=== PATIENT | male | born 1995 | race Caucasian/White ===

== ENCOUNTER 2024-04-08 13:02 | Emergency (ER) | payer SELFPAY ==
[2024-04-08 13:04] VITALS: BP 134/93
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
[2024-04-08] MEDS: ADACEL 0.5 ML IM (15:38)
[2024-04-08 15:59] VITALS: BP 131/96
== END 2024-04-08 16:00 | disposition home or self-care (01) ==
LOC: EMR 13:02
PROVIDERS: EMERGENCY PHYSICIAN Emergency Medicine
DX: S01.01XA Laceration without foreign body of scalp, initial encounter (principal); S61.412A Laceration without foreign body of left hand, initial encounter; V95.9XXA Unspecified aircraft accident injuring occupant, initial encounter; S60.455A Superficial foreign body of left ring finger, initial encounter; W49.04XA Ring or other jewelry causing external constriction, initial encounter; Z23 Encounter for immunization
CPT/HCPCS: 12002; 90471; 99284; 70450; 73130; 90715

== ENCOUNTER 2024-04-22 06:43 | Day surgery (SDC) | payer OTHER, SELFPAY ==
[2024-04-22 10:50] VITALS: BMI 28.0
[2024-04-22 10:55] VITALS: BP 129/90
[2024-04-22 11:14] VITALS: BMI 28.0
[2024-04-22 15:15] VITALS: BP 112/65; BP 129/90
[2024-04-22 15:30] VITALS: BP 138/71
[2024-04-22 15:35] VITALS: BP 122/91
[2024-04-22 16:05] VITALS: BP 126/86
[2024-04-22 16:25] VITALS: BP 129/84
== END 2024-04-22 16:54 | disposition home or self-care (01) ==
LOC: SDS 06:43
PROVIDERS: ATTENDING PHYSICIAN Orthopaedic Surgery Hand Surgery
DX: S66.327A Laceration of extensor muscle, fascia and tendon of left little finger at wrist and hand level, initial encounter (principal); V95.9XXA Unspecified aircraft accident injuring occupant, initial encounter; Y93.89 Activity, other specified
CPT/HCPCS: 26418

== ENCOUNTER 2024-06-23 13:45 | Emergency (ER) | payer OTHER, SELFPAY ==
[2024-06-23 13:49] VITALS: BP 131/103
--- NOTE | 2024-06-23 13:55 | ED.GENMED ---
History of Present Illness
General
Chief Complaint: Skin Problem
Time Seen by Provider: 06/23/24 13:55
History of Present Illness
History of Present Illness:
TIME OF INITIAL ENCOUNTER: 1:56 PM
HPI: The patient accidentally cut his finger using a knife while a zip tie. His tetanus status is up-to-date. He denies any other injury.
EXAM:
GENERAL: Well appearing in no distress
HEENT: Moist oral mucosa
NEUROLOGIC: Excellent strength all extremities, no obvious coordination deficits
PSYCHIATRIC: Appropriate mental status, normal insight and judgement
EXTREMITIES: There is a 1.5 cm laceration distal to the left second digit DIP with excellent active range of motion however there is ongoing bleeding that recurs despite pressure
SKIN: No rash, no lesions
NUMBER AND COMPLEXITY OF PROBLEMS ADDRESSED AT THE ENCOUNTER
� Chronic conditions affecting care: No significant past medical history but has had left hand tendon repair in the past
� Acute Exacerbation and/or Progression of Chronic Illness: This is an acute problem
� Differential Diagnosis includes: Laceration, no evidence for foreign body nor tendon injury
AMOUNT AND/OR COMPLEXITY OF DATA TO BE REVIEWED AND ANALYZED
� I performed an independent evaluation of and my interpretation is:
EKG:
CT:
X-rays:
Laboratory Studies:
Other:
� Review of other/old records: I reviewed records, the patient had a left fifth digit extensor tendon laceration repaired operatively Dr. Morocho 2 months ago
� Clinical information was obtained by an independent historian:
� Prescriptions/Medications Considered but not given:
� Further testing considered but not performed: No clinical indication for x-rays at this time
RISK OF COMPLICATIONS AND/OR MORBIDITY OR MORTALITY OF PATIENT MANAGEMENT
� Social determinants of health affecting care: Lives at home
� Discussion with other providers:
� Escalation of care including admission/observation vs risk of discharge considered: Tetanus status already up-to-date. The wound was cleaned copiously with irrigation with saline and laceration repaired with 2 sutures.
ANY OTHER UPDATES:
Past History
Past History
ED Past Medical History: None
Phy Exam
Physical Exam
Physical Exam:
See HPI
Course
Vital Signs
Initial and Last Documented VS:
Initial Vital Signs
Temp Pulse Resp BP Pulse Ox
36.6 C 76 18 131/103 100
06/23/24 13:49 06/23/24 13:49 06/23/24 13:49 06/23/24 13:49 06/23/24 13:49
Last Documented Vital Signs
Temp Pulse Resp BP Pulse Ox
36.6 C 76 18 131/103 100
06/23/24 13:49 06/23/24 13:49 06/23/24 13:49 06/23/24 13:49 06/23/24 13:49
Procedures
Laceration Closure
Left Fifth Finger:
Status of Wound: clean
Description of Wound Edges: sharp
Preparation: cleaned with saline
Revision/Debridement: routine- no revision
Wound exploration: explored to base- no FB
Type of Closure: single layer closure
Skin Closure Material: 4-0 nylon
Number of sutures: 2
*Critical Care Note
Total Time (30-74mins, 75-104mins- exclusive of procedures): Not Applicable
ED Attending Note
-
Portions of this chart may have been created with voice recognition software.� Occasional wrong word or��sound alike� substitutions may have occurred due to the inherent limitations of voice recognition software.
Discharge Plan
Departure
Patient Disposition: Home (Routine Discharge)
Date of Disposition: 06/23/24
Time of Disposition: 14:32
Patient with high blood pressure during this ER visit?: Yes
Discharge Problem:
Finger laceration
Instructions: Stitches and marisabel, BLOOD PRESSURE
Prescriptions:
No Action
No Current Medications
0
Activity Restrictions/Additional Instructions:
Have your removed the sutures in approximately 1 week. Return here if worse or other concerns.
Interventions
Interventions:
*Risk Screen - Suicide Last Done: 06/23/24 13:49
*General Assessment Last Done: 06/23/24 13:49
*Neglect/Abuse Screening Last Done: 06/23/24 13:49
ED- Fall Risk Assessment Last Done: 06/23/24 14:26
*ED COVID-19 Vaccine History Last Done: 06/23/24 14:26
ED-Skin Assessment Last Done: 06/23/24 14:26
Discharge Date and Time
Print Language: GEORGIAN
== END 2024-06-23 14:44 | disposition home or self-care (01) ==
LOC: EMR 13:45
PROVIDERS: EMERGENCY PHYSICIAN Emergency Medicine; FAMILY PHYSICIAN Nurse Practitioner Family
DX: S61.211A Laceration without foreign body of left index finger without damage to nail, initial encounter (principal); W26.0XXA Contact with knife, initial encounter
CPT/HCPCS: 12001; 99282